=== PATIENT | female | born 1945 | race Caucasian/White ===

== ENCOUNTER 2018-04-22 10:34 | Outpatient (CLI) | payer MEDICARE, SELFPAY ==
[2018-05-31 13:46] LABS: PHA INR Fingerstick 1.8 (0.9-1.1)
== END 2018-04-22 14:30 ==
LOC: ACC 10:37
PROVIDERS: PCP Nurse Practitioner; Visit Provider Nurse Practitioner
DX: Z79.01 Long term (current) use of anticoagulants (principal)
CPT/HCPCS: 85610; 99211; G0463

== ENCOUNTER 2018-06-27 10:16 | Inpatient (IN) ==
[2018-06-27 10:37] LABS: Basophils % 0.4 % (0.1-2.0); Eosinophils % 0.5 % (0.1-12.0); Hematocrit 45.5 % (37.0-47.0); Hemoglobin 14.8 g/dL (12.2-16.2); Lymphocytes # 1.1 K/mm3 (0.7-4.5); Lymphocytes % 30.3 % (10-50); Mean Corpuscular HGB Conc 32.5 g/dL (31.8-35.4); Mean Corpuscular Hemoglobin 34.3 pg (27.0-31.2); Mean Corpuscular Volume 105.5 fl (81-99); Mean Platelet Volume 8.4 fl (7.4-10.4); Monocytes # 0.2 K/mm3 (0.1-1.0); Monocytes % 5.8 % (1.7-9.3); Neutrophils # 2.3 K/mm3 (1.8-7.8); Platelet Count 261 K/mm3 (142-424); Red Blood Count 4.31 M/mm3 (4.20-5.40); Red Cell Distribution Width 14.3 % (11.5-17.5); White Blood Count 3.7 K/mm3 (4.8-10.8)
--- NOTE | 2018-06-27 10:38 | Emergency Department Note ---
ED Disposition Clinical Impression: Chronic atrial fibrillation, Anxiety and depression, Hypertension, Rheumatoid arthritis, Osteopenia, Unstable angina, Atrial fibrillation with RVR, Vomiting, Hypokalemia Disposition: Still a Patient Condition on Discharge: Fair Referrals: Provider,Referral, [Referring] - - Critical Care Critical Care Time: No Attestation: On 06/27/18, the high probability of a clinically significant, sudden or life threatening deterioration of the following system(s) required my full and direct attention, intervention and personal management. The time I documented below is in addition to time spent performing reported procedures but includes the following listed in this critical care notation. Medical Decision Making - Medical Records Medical records reviewed: Yes: I reviewed the patient's medical records. - Vitor Inquiry Pt receiving controlled substance: No Vitor was queried for this patient: No Vital Signs: 06/27/18 10:16 06/27/18 11:00 06/27/18 11:12 Temperature 97.9 F Temperature Source Oral Pulse Rate [Apical] 111 H 103 H 113 H Respiratory Rate 20 18 Blood Pressure [Right Arm] 143/81 H 112/72 121/72 Blood Pressure Mean [Right Arm] 101 85 88 Blood Pressure Source [Right Arm] Automatic Cuff Automatic Cuff Automatic Cuff Blood Pressure Position [Right Arm] Sitting Sitting Supine 02 Sat by Pulse Oximetry 100 100 100 Oxygen Delivery Method Room Air Room Air Room Air 06/27/18 11:32 06/27/18 12:42 06/27/18 12:46 Temperature Temperature Source Pulse Rate [Apical] 103 H 107 H 125 H Respiratory Rate Blood Pressure [Right Arm] 117/64 137/83 130/74 Blood Pressure Mean [Right Arm] 81 101 92 Blood Pressure Source [Right Arm] Automatic Cuff Automatic Cuff Automatic Cuff Blood Pressure Position [Right Arm] Sitting Sitting Sitting 02 Sat by Pulse Oximetry 98 98 Oxygen Delivery Method Room Air Room Air 06/27/18 12:51 Temperature Temperature Source Pulse Rate [Apical] 111 H Respiratory Rate Blood Pressure [Right Arm] 120/75 Blood Pressure Mean [Right Arm] 90 Blood Pressure Source [Right Arm] Automatic Cuff Blood Pressure Position [Right Arm] Sitting 02 Sat by Pulse Oximetry Oxygen Delivery Method - Lab Data Lab Results 06/27/18 10:20: WBC 3.7 L, RBC 4.31, Hgb 14.8, Hct 45.5, MCV 105.5 H, MCH 34.3 H , MCHC 32.5, RDW 14.3, Plt Count 261, MPV 8.4, Neut % (Auto) 63.0, Lymph % (Auto) 30.3, [place] % (Auto) 5.8, Eos % (Auto) 0.5, Baso % (Auto) 0.4, Neut # (Auto) 2.3, Lymph # (Auto) 1.1, [place] # (Auto) 0.2, Eos # (Auto) 0.0, Baso # (Auto) 0.0 06/27/18 10:20: PT 12.5 H, INR 1.22 H 06/27/18 10:20: Sodium 138, Potassium 3.3 L, Chloride 100, Carbon Dioxide 26, Anion Gap 15.3 H, BUN 9, Creatinine 1.05 H, Estimated Creat Clear 34, Estimated GFR 51 L, Est GFR ( Amer) 62, Glucose 142 H, Calcium 9.8, Troponin I < 0.02 06/27/18 10:20: PT 12.4 H, INR 1.21 H, APTT 26.4 06/27/18 10:20: Magnesium 1.8, Total Bilirubin 0.4, Direct Bilirubin 0.1, Indirect Bilirubin 0.3, AST 13 L, ALT 13, Alkaline Phosphatase 76, Total Protein 8.3 H, Albumin 4.1 Result diagrams: 06/27/18 10:20 06/27/18 10:20 Orders (Tests/Meds): ED MEDICATIONS Generic Name Dose Route Start Last Admin Trade Name Freq PRN Reason Stop Dose Admin Sodium Chloride 1,000 mls @ 999 mls/hr 06/27/18 12:15 Sod Chlor 0.9% 1000ml Bag IV 06/27/18 13:15 .Q1H1M PHU Discontinued Medications Generic Name Dose Route Start Last Admin Trade Name Freq PRN Reason Stop Dose Admin Aspirin 324 mg 06/27/18 10:49 06/27/18 11:03 Aspirin 81mg Chewable Tablet PO 06/27/18 10:50 324 mg ONCE ONE Administration Famotidine 20 mg 06/27/18 10:50 06/27/18 11:03 Pepcid 20mg/2ml Vial IV 06/27/18 10:51 20 mg ONCE ONE Administration Sodium Chloride 1,000 mls @ 999 mls/hr 06/27/18 11:00 06/27/18 11:03 Sod Chlor 0.9% 1000ml Bag IV 06/27/18 12:00 999 mls/hr .Q1H1M PHU Administration Metoprolol Tartrate 2.5 mg 06/27/18 12:35 06/27/18 12:46 Metoprolol Tartrate 5mg/5ml Vial IV 06/27/18 12:36 2.5 mg ONCE ONE Administration Ondansetron HCl 2 mg 06/27/18 10:50 06/27/18 11:03 Zofran 4mg/2ml Vial IV 06/27/18 10:51 2 mg ONCE ONE Administration Potassium Chloride 40 meq 06/27/18 12:02 06/27/18 12:50 Klor-Con 20meq Tablet PO 06/27/18 12:03 Not Given ONCE ONE ORDERS Category Date Time Status Troponin I Stat Lab 06/27/18 12:55 Ordered - Radiology Data #1 Image(s): Chest, Abdomen Image Reviewed: Yes I reviewed the patient's radiology image, Yes I discussed the image results w/the radiologist Preliminary Findings: Normal/NAD - ECG Data Tracing #1 Atrial fibrillation 100/min baseline artifact, unifocal PVCs, incomplete right bundle branch block, T wave inversion in the anterior leads and inferior leads that is stable since March 18, 2018. ECG initial impression date: 06/27/18 ECG initial impression time: 10:15 Medical Decision Narrative: I have discussed the patient's EKG lab results with the patient, her and her daughter who is an ER nurse at [facility]. She was agreeable to be admitted and be evaluated by our side seam tender. 1220 discussed her case with Dr. Randall who agreed that the patient need to be admitted for cardiac work-up. [address] Doherty who requested anti-medics, troponin every 3, and repeat EKG upon arrival to the floor General Adult HPI - General Chief complaint: Chest Pain Stated complaint: chest pain Time Seen by Provider: 06/27/18 10:20 Mode of Arrival: Ambulatory Limitations: No Limitations Description of Symptoms (Recalled from ER Triage Doc. by RN): Pt c/o L sided chest pain that began yesterday, pt describes pain as aching in nature. Pt reports n/v/d yesterday when pain began. Pt reports continues to be nauseated today and having diarrhea. pt reports hx of afib. - History of Present Illness HPI narrative: 73 years old white female with history of anxiety and chronic atrial fibrillation is on anticoagulation, also osteoarthritis and osteopenia. 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 She is here from [facility] caring for her [id number] and his who recently . She receives her care at [facility]. She brought papers from her primary care physician Alondra Patterson that showed that she is behind on many of her health screenings. Yesterday, she developed concomitant symptom of nausea, dry heaving, light chest pressure 3/10 that is unrelated to activity, and multiple diarrheas. The patient continues to be symptomatic with intremittent palpitation and exertional dyspnea so she decided to come to the ED for evaluation. The patient has has been using Fioricet for headache and stopped using her Coumadin for the past 5 days for fear of Coumadin toxicity. Onset (ago): day(s) (started yesterday morning.) Radiation: non-radiation Severity: mild Severity scale (1-10): 3 Quality: dull Relieving factors: none Exacerbating factors: none Associated symptoms: other (nausea, dry heaving and exertional dyspnea. ) - Related Data Home Medications Medication Instructions Recorded Confirmed Butalbit/Acetamin/Caff/Codeine 50 - 325 mg PO NEEDED PRN 04/24/18 06/27/18 [Fioricet w/Codeine Capsule] Metoprolol Succinate [Metoprolol 200 mg PO DAILY 04/24/18 06/27/18 Succinate 200mg Tablet] Warfarin Sodium 5 mg PO DIRECTED 04/24/18 06/27/18 Warfarin Sodium [Coumadin 1mg 2.5 mg PO DIRECTED 04/24/18 06/27/18 tablet] Ergocalciferol (Vitamin D2) 1 cap PO WEEKLY 06/27/18 06/27/18 [Vitamin D2] Allergies Allergy/AdvReac Type Severity Reaction Status Date / Time prednisone AdvReac Verified 03/17/18 13:28 [facility] History - Hepatitis A Screen Drug use history?: No High risk sexual behaviors?: No History of sexually transmitted infection?: No Currently employed?: No Childcare worker?: No Do you have indoor plumbing?: Yes Do you have electricity?: Yes Attestation statement:: This patient has been screened for Hepatitis A risk factors. I have reviewed the patient's past medical history: Yes Medical History: Reports:: Atrial Fibrillation, Migraine Denies:: Diabetes Mellitus Type 1, Diabetes Mellitus Type 2 - Social History Smoking Status: Never smoker Alcohol Intake: never Occupational Status: retired - Psychiatric History Expresses thoughts of harming self/others: None Suicide Plan Description: No Plan ROS Obtained: Yes All systems reviewed & no additional complaints Physical Exam - General General appearance: alert, in no apparent distress - Head Head exam: atraumatic, normocephalic, normal inspection - Eye Eye exam: Present: normal appearance, PERRL, EOMI - ENT ENT exam: Present: normal exam, normal oropharynx, mucous membranes moist, TM's normal bilaterally, normal external ear exam - Neck Neck exam: Present: normal inspection, full ROM, trachea midline. Absent: meningismus, lymphadenopathy - Chest Chest inspection: Present: normal inspection, symmetric chest wall rise. Absent: tenderness - Respiratory Respiratory exam: Present: normal lung sounds bilaterally. Absent: respiratory distress - Cardiovascular Cardiovascular exam: Present: regular rate, normal rhythm. Absent: JVD - Abdominal Exam Abdominal exam: Present: soft, normal bowel sounds. Absent: distention, tenderness, guarding - Extremities Exam Extremities exam: Present: normal inspection, full ROM, normal capillary refill. Absent: calf tenderness - Back Exam Back exam: Present: normal inspection. Absent: tenderness - Neurological Exam Neurological exam: Present: alert, oriented X3 - Psychiatric Psychiatric exam: Present: normal affect, normal mood - Skin Skin exam: Present: warm, dry, intact, normal color - Lymphatic Lymphatic Findings: no adenopathy
[2018-06-27 10:45] LABS: INR 1.22 (0.9-1.1); Prothrombin Time 12.5 seconds (9.4-11.8)
[2018-06-27 10:52] LABS: Anion Gap 15.3 mEq/L (5-15); Blood Urea Nitrogen 9 mg/dL (7-18); Calcium 9.8 mg/dL (8.5-10.1); Carbon Dioxide 26 mmol/L (21.0-32.0); Chloride 100 mmol/L (98-107); Glucose 142 mg/dL (74-106); Potassium 3.3 mmoL/L (3.5-5.1); Sodium 138 mmol/L (136-145)
[2018-06-27 10:53] LABS: Albumin Level 4.1 gm/dL (3.4-5.0); Bilirubin,Direct 0.1 mg/dL (0.0-0.2); Bilirubin,Indirect 0.3 mg/dL (0.0-0.9); Bilirubin,Total 0.4 mg/dL (0.2-1.0); Total Protein,Serum 8.3 gm/dL (6.4-8.2)
[2018-06-27 10:58] LABS: Activated Partial Thrombo Time 26.4 seconds (23.6-34.0); INR 1.21 (0.9-1.1); Prothrombin Time 12.4 seconds (9.4-11.8)
[2018-06-28 01:19] LABS: Microscopic, Urine URINE MICROSCOPIC (MICROSCOPIC)
[2018-06-28 01:23] LABS: Appearance,Urine SL CLOUDY (Clear); Blood, Urine 2+ (Negative); Color,Urine YELLOW (Yellow); Glucose,Urine (UA) Negative (Negative); Ketones,Urine 1+ (Negative); Leukocyte Esterase,Urine Negative (Negative); Protein,Urine 1+ (Negative); Specific Gravity, Urine 1.025 (1.005-1.030); Urobilinogen,Urine 0.2 EU/dl (0.2)
[2018-06-28 01:25] LABS: Bacteria,Urine 4+ /lpf; Bilirubin,Urine Negative (Negative)
[2018-06-28 07:30] LABS: Basophils % 0.3 % (0.1-2.0); Eosinophils % 0.1 % (0.1-12.0); Hematocrit 38.5 % (37.0-47.0); Lymphocytes % 14.2 % (10-50); Mean Corpuscular HGB Conc 32.6 g/dL (31.8-35.4); Mean Corpuscular Hemoglobin 34.4 pg (27.0-31.2); Mean Corpuscular Volume 105.5 fl (81-99); Mean Platelet Volume 8.3 fl (7.4-10.4); Monocytes # 0.4 K/mm3 (0.1-1.0); Monocytes % 5.2 % (1.7-9.3); Neutrophils # 5.6 K/mm3 (1.8-7.8); Neutrophils % 80.3 % (37.0-80.0); Platelet Count 196 K/mm3 (142-424); Red Blood Count 3.65 M/mm3 (4.20-5.40); Red Cell Distribution Width 14.8 % (11.5-17.5)
[2018-06-28 07:35] LABS: INR 1.37 (0.9-1.1)
[2018-06-28 07:41] LABS: Hemoglobin 12.7 g/dL (12.2-16.2)
[2018-06-28 07:42] LABS: Anion Gap 14.4 mEq/L (5-15)
--- NOTE | 2018-06-28 07:42 | Pharmacy Consult Notes ---
[facility] Pharmacy VTE Monitoring - Patient Demographics Admission date: 06/27/18 Report Date: 06/28/18 Time: 07:42 Allergies/Adverse Reactions: Patient Allergies prednisone Adverse Reaction (Verified 03/17/18 13:28) Height: 1.6 m Weight: 44.906 kg Patient Problems: Current Active Problems (Updated 06/27/18 @ 13:03 by Gisele Tom MD) Chronic atrial fibrillation (Acute) Hypokalemia (Acute) Rheumatoid arthritis (Acute) Anxiety and depression (Acute) Hypertension (Acute) Osteopenia (Acute) Unstable angina (Acute) Atrial fibrillation with RVR (Acute) Vomiting (Acute) - VTE Risk Labs: VTE Related Lab Results Hgb 12.7 g/dL (12.2-16.2) D 06/28/18 06:50 Hct 38.5 % (37.0-47.0) 06/28/18 06:50 Plt Count 196 K/mm3 (142-424) 06/28/18 06:50 PT 14.0 seconds (9.4-11.8) H 06/28/18 06:50 INR 1.37 (0.9-1.1) H 06/28/18 06:50 APTT 26.4 seconds (23.6-34.0) 06/27/18 10:20 BUN 9 mg/dL (7-18) 06/27/18 10:20 Creatinine 1.05 mg/dL (0.55-1.02) H 06/27/18 10:20 Estimated Creat Clear 34 mL/min (50-200) 06/27/18 10:20 Was VTE Risk Assessment Performed: Yes VTE Score: 2 - Prophylaxis VTE Prophylaxis Ordered?: Yes Types of VTE Prophylaxis: Pharmacological Pharmacologic Type: Warfarin - VTE Diagnosis Confirmed Treatment or plan recommended: Continue Current Treatment
[2018-06-28 07:47] LABS: Potassium 2.4 mmoL/L (3.5-5.1)
[2018-06-28 07:52] LABS: Calcium 8.6 mg/dL (8.5-10.1)
--- NOTE | 2018-06-28 07:56 | History & Physical Report ---
*Admission Date: 06/27/18 *Chief complaint: Chest pain and abdominal pain *History of present illness: 73-year-old white female with history of atrial fibrillation and cardiac disease, who has been staying in the [facility] for the past several months taking care of some relatives, who normally follows with cardiology and a regular physician in [place], [place]. She came to the emergency department last night because of chest pain and pressure, related to increased heart rate. In the emergency department she was found to have subtherapeutic INR, found to have elevated heart rate but negative troponins. Given her overall medical fragility and need for better medication control of heart rate and INR issues she was admitted overnight to the hospital. This morning she continues to feel tired and sluggish. She specifically denies chest pain this morning [facility] History I have reviewed the patient's past medical history: Yes Medical History: Reports:: Atrial Fibrillation, Migraine Denies:: Cancer, Diabetes Mellitus Type 1, Diabetes Mellitus Type 2, MRSA *Have you ever received a pneumonia vaccine?: No *Have you received a flu vaccine this season?: No Other Surgeries: Yes: Cardiac Catheterization (28 years ago) Amputation: No Fractures: No - *Social History Educational Level: Completed GED/General Educational Development Smoking Status: Never smoker Alcohol Intake: never *Occupational Status:: retired *Travel in the last 8 weeks: None - Psychiatric History Expresses thoughts of harming self/others: None Suicide Plan Description: No Plan Family Hx:: No significant family history Review of Systems - Review of Systems Review of systems:: pertinent systems reviewed and negative unless documented below - Constitutional Denies anorexia, Denies body ache(s) - Eyes Denies blurry vision, Denies change in vision - ENT Denies abnormal hearing, Denies bleeding gums, Denies change in voice - *Cardiovascular Reports chest pain, Reports shortness of breath, Reports shortness of breath with activity, Reports irregular heart rhythm, Denies chest pain at rest - *Respiratory Denies change in phlegm color, Denies chest congestion, Denies cough - *Gastrointestinal Denies abdominal pain, Denies belching - *Musculoskeletal Denies abnormal walking, Denies joint pain, Denies joint swelling - *Neurologic Denies abnormal walking - Psychiatric Denies abnormal sleep pattern Meds Home Medications Medication Instructions Recorded Confirmed Type Butalbit/Acetamin/Caff/Codeine 50 - 325 mg PO NEEDED PRN 04/24/18 06/27/18 Hi story [Fioricet w/Codeine Capsule] Metoprolol Succinate [Metoprolol 200 mg PO DAILY 04/24/18 06/27/18 History Succinate 200mg Tablet] Warfarin Sodium 5 mg PO DAILY 04/24/18 06/27/18 History Ergocalciferol (Vitamin D2) 1 cap PO WEEKLY 06/27/18 06/27/18 History [Vitamin D2] Ondansetron HCl [Ondansetron 4mg 4 mg PO Q8HP PRN 06/27/18 06/27/18 History Tablet] Allergies Allergy/AdvReac Type Severity Reaction Status Date / Time prednisone AdvReac Verified 03/17/18 13:28 Exam Vital signs and Labs for Last 24 Hours: Temp Pulse Resp BP Pulse Ox 98.4 F 131 H 18 138/78 98 06/28/18 07:33 06/28/18 07:33 06/28/18 07:33 06/28/18 07:33 06/28/18 07:33 Laboratory Results - last 24 hr 06/27/18 10:20: WBC 3.7 L, RBC 4.31, Hgb 14.8, Hct 45.5, MCV 105.5 H, MCH 34.3 H , MCHC 32.5, RDW 14.3, Plt Count 261, MPV 8.4, Neut % (Auto) 63.0, Lymph % (Auto) 30.3, [place] % (Auto) 5.8, Eos % (Auto) 0.5, Baso % (Auto) 0.4, Neut # (Auto) 2.3, Lymph # (Auto) 1.1, [place] # (Auto) 0.2, Eos # (Auto) 0.0, Baso # (Aut o) 0.0 06/27/18 10:20: PT 12.5 H, INR 1.22 H 06/27/18 10:20: Sodium 138, Potassium 3.3 L, Chloride 100, Carbon Dioxide 26, Anion Gap 15.3 H, BUN 9, Creatinine 1.05 H, Estimated Creat Clear 34, Estimated GFR 51 L, Est GFR ( Amer) 62, Glucose 142 H, Calcium 9.8, Troponin I < 0.02 06/27/18 10:20: PT 12.4 H, INR 1.21 H, APTT 26.4 06/27/18 10:20: Magnesium 1.8, Total Bilirubin 0.4, Direct Bilirubin 0.1, Indirect Bilirubin 0.3, AST 13 L, ALT 13, Alkaline Phosphatase 76, Total Protein 8.3 H, Albumin 4.1 06/27/18 17:05: Troponin I < 0.02 06/27/18 19:27: Troponin I < 0.02 06/28/18 00:40: Stl Aeromonas (PCR) Not detected, Stl C. cayetanensis PCR Not detected, Stool Rotavirus (PCR) Not detected, Stl Adenov F 40/41 PCR Not detected, Stool Astrovirus (PCR) Not detected, Stool Campylobacter PCR Not detected, Stl C.difficile Tox PCR Not detected, Stool Cryptosporidium PCR Not detected, Stl E.coli Shiga Tox PCR Not detected, Stool E coli O157 PCR Not detected, Stl Enterotoxigenic E PCR Not detected, Stool EPEC (PCR) Not detected, Stool EAEC (PCR) Not detected, Stl E. histolytica PCR Not detected, Stool Giardia Lamblia PCR Not detected, Stool Salmonella PCR Not detected, Stool Sapovirus (PCR) Not detected, Stl P. shigelloides PCR Not detected, Stl Shigella/EIEC PCR Not detected, St Y.enterocolitica PCR Not detected, Stool Vibrio (PCR) Not detected, Stl Vibrio cholerae PCR Not detected, Stl Norovirus GI/GII PCR Not detected 06/28/18 00:40: Urine Color Yellow, Urine Appearance Sl cloudy, Urine pH 6.0, Ur Specific [place] 1.025, Urine Protein 1+, Urine Glucose (UA) Negative, Urine Ketones 1+, Urine Blood 2+, Urine Nitrate Negative, Urine Bilirubin Negative, Urine Urobilinogen 0.2, Ur Leukocyte Esterase Negative, Urine RBC 5-10, Urine WBC 5-10, Urine Bacteria 4+ 06/28/18 06:50: PT 14.0 H, INR 1.37 H 06/28/18 06:50: WBC 7.0 D, RBC 3.65 L, Hgb 12.7 D, Hct 38.5, MCV 105.5 H, MCH 34.4 H, MCHC 32.6, RDW 14.8, Plt Count 196, MPV 8.3, Neut % (Auto) 80.3 H, Lymph % (Auto) 14.2, [place] % (Auto) 5.2, Eos % (Auto) 0.1, Baso % (Auto) 0.3, Neut # (Auto) 5.6, Lymph # (Auto) 1.0, [place] # (Auto) 0.4, Eos # (Auto) 0.0, Baso # (Auto) 0.0 06/28/18 06:50: Sodium 139, Potassium 2.4 L* D, Chloride 103, Carbon Dioxide 24, Anion Gap 14.4, BUN 5 L D, Creatinine 0.78 D, Estimated Creat Clear 35, Estimated GFR 72, Est GFR ( Amer) 87 D, Glucose 114 H I & O for Last 24 hours: Intake & Output 06/25/18 06/26/18 06/27/18 06/28/18 11:59 11:59 11:59 11:59 Intake Total 1611 / 1611 Output Total 200 / 200 Balance 1411 / 1411 Weight 100 lb 8 oz 99 lb Narrative: Patient is pleasant, appears older than her stated age and is extremely frail and thin. Oropharynx clear. No JVD. Heart rate is elevated at 110-120 and irregular. Distal pulses are regular but present. No edema or clubbing. Good distal perfusion. Lungs have good air movement and are well-expanded. Abdomen is soft and nontender. No specific neuro deficits. Normal cranial nerves. Assessment and Plan (1) Chest pain Current visit: Yes Status: Acute Category: Medical Code(s): R07.9 - Chest pain, unspecified Cardiology eval today.. check echo. (2) Atrial fibrillation with RVR Current visit: Yes Status: Acute Category: Medical Code(s): I48.91 - Unspecified atrial fibrillation restart metoprolol.... eval INR levels (3) Chronic atrial fibrillation Current visit: Yes Status: Acute Category: Medical Code(s): I48.2 - Chronic atrial fibrillation (4) Hypertension Current visit: Yes Status: Acute Category: Medical Code(s): I10 - Essential (primary) hypertension (5) Hypokalemia Current visit: Yes Status: Acute Category: Medical Code(s): E87.6 - Hypokalemia Replace K+ as noted. (6) BMI less than 19,adult Current visit: Yes Status: Acute Category: Medical Code(s): Z68.1 - Body mass index (BMI) 19.9 or less, adult Complicates all aspects of her care.
--- NOTE | 2018-06-28 10:06 | Consult Report ---
History of Present Illness Consult date: 06/28/18 Requesting physician: Yeyo Cotto Consult reason: atrial fibrillation Chief complaint: chest pain, A. fib Additional Medical History:: 1. Chronic A. fib A. Coumadin therpay, chronic 2. 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 History of esophageal stricture status post dilatation x2 History of present illness: 73-year-old white female with history of atrial fibrillation and cardiac disease, who has been staying in the [facility] for the past several months taking care of some relatives, who normally follows with cardiology and a regul ar physician in [place], [place]. She came to the emergency department last night because of chest pain and pressure, related to increased heart rate. In the emergency department she was found to have subtherapeutic INR, found to have elevated heart rate but negative troponins. Given her overall medical fragility and need for better medication control of heart rate and INR issues she was admitted overnight to the hospital. This morning she continues to feel tired and sluggish. She specifically denies chest pain this morning The above per Dr. Cotto Patient relates some upper abdominal lower chest discomfort which she relates to indigestion for which she was taking multiple doses of Pepto-Bismol yesterday. When she became constipated due to the Pepto-Bismol she did decided to take a shake to try and alleviate symptoms. This later produced some significant diarrhea which prompted her to come to the emergency department for evaluation. Patient was noted to have tachycardic rate with a subtherapeutic INR and was kept for further evaluation. Cardiac troponins overnight have returned normal. Patient relates cardiac stress test in the fall of last year in [place], [place] which was unremarkable. Her Medications were adjusted to try to control her heart rate a little bit better, but she relates recently at about 2 in the morning she has noticed that her heart rate begins to flutter without associated chest pain. She denies any change in her exercise capacity recently. Her Arthritis is somewhat limiting. She sees Dr. Jose Guadalupe Dowell, fitter armament in [place], [place]. EKG this admission shows atrial fibrillation with a tachycardic rate with anterolateral ST segment abnormalities with no previous EKG for comparison. [facility] History Medical History: Reports:: Atrial Fibrillation, Migraine Denies:: Cancer, Diabetes Mellitus Type 1, Diabetes Mellitus Type 2, MRSA *Have you ever received a pneumonia vaccine?: No *Have you received a flu vaccine this season?: No Other Surgeries: Yes: Cardiac Catheterization (28 years ago) Amputation: No Fractures: No - *Social History Educational Level: Completed GED/General Educational Development Smoking Status: Never smoker Alcohol Intake: never *Occupational Status:: retired *Travel in the last 8 weeks: None - Psychiatric History Expresses thoughts of harming self/others: None Suicide Plan Description: No Plan Family Hx:: No significant family history Meds Home Medications Medication Instructions Recorded Confirmed Type Butalbit/Acetamin/Caff/Codeine 1 each PO DIRECTED PRN 04/24/18 06/28/18 History [Fioricet w/Codeine Capsule] Metoprolol Succinate [Metoprolol 200 mg PO DAILY 04/24/18 06/27/18 History Succinate 200mg Tablet] Warfarin Sodium 5 mg PO DIRECTED 04/24/18 06/28/18 History Ergocalciferol (Vitamin D2) 1 cap PO WEEKLY 06/27/18 06/27/18 History [Vitamin D2] Ondansetron HCl [Ondansetron 4mg 4 mg PO Q8HP PRN 06/27/18 06/27/18 History Tablet] Allergies Allergy/AdvReac Type Severity Reaction Status Date / Time prednisone AdvReac Verified 03/17/18 13:28 Review of Systems - *Cardiovascular Reports chest pain, Reports rapid, pounding, or irregular heartbeat - *Respiratory Reports shortness of breath with activity, Denies coughing up blood, Denies wheezing - *Gastrointestinal Reports heartburn, Denies vomiting blood, Denies vomiting - *Genitourinary Denies side pain - *Musculoskeletal Reports joint pain, Reports back pain - *Neurologic Denies abnormal walking, Denies abnormal hearing Exam Vital signs and Labs for Last 24 Hours: Temp Pulse Resp BP Pulse Ox 98.4 F 131 H 18 138/78 98 06/28/18 07:33 06/28/18 07:33 06/28/18 07:33 06/28/18 07:33 06/28/18 07:33 Laboratory Results - last 24 hr 06/27/18 10:20: WBC 3.7 L, RBC 4.31, Hgb 14.8, Hct 45.5, MCV 105.5 H, MCH 34.3 H , MCHC 32.5, RDW 14.3, Plt Count 261, MPV 8.4, Neut % (Auto) 63.0, Lymph % (Auto) 30.3, [place] % (Auto) 5.8, Eos % (Auto) 0.5, Baso % (Auto) 0.4, Neut # (Auto) 2.3, Lymph # (Auto) 1.1, [place] # (Auto) 0.2, Eos # (Auto) 0.0, Baso # (Auto) 0.0 06/27/18 10:20: PT 12.5 H, INR 1.22 H 06/27/18 10:20: Sodium 138, Potassium 3.3 L, Chloride 100, Carbon Dioxide 26, Anion Gap 15.3 H, BUN 9, Creatinine 1.05 H, Estimated Creat Clear 34, Estimated GFR 51 L, Est GFR ( Amer) 62, Glucose 142 H, Calcium 9.8, Troponin I < 0.02 06/27/18 10:20: PT 12.4 H, INR 1.21 H, APTT 26.4 06/27/18 10:20: Magnesium 1.8, Total Bilirubin 0.4, Direct Bilirubin 0.1, Indirect Bilirubin 0.3, AST 13 L, ALT 13, Alkaline Phosphatase 76, Total Protein 8.3 H, Albumin 4.1 06/27/18 17:05: Troponin I < 0.02 06/27/18 19:27: Troponin I < 0.02 06/28/18 00:40: Stl Aeromonas (PCR) Not detected, Stl C. cayetanensis PCR Not detected, Stool Rotavirus (PCR) Not detected, Stl Adenov F 40/41 PCR Not detected, Stool Astrovirus (PCR) Not detected, Stool Campylobacter PCR Not detected, Stl C.difficile Tox PCR Not detected, Stool Cryptosporidium PCR Not detected, Stl E.coli Shiga Tox PCR Not detected, Stool E coli O157 PCR Not detected, Stl Enterotoxigenic E PCR Not detected, Stool EPEC (PCR) Not detected, Stool EAEC (PCR) Not detected, Stl E. histolytica PCR Not detected, Stool Giardia Lamblia PCR Not detected, Stool Salmonella PCR Not detected, Stool Sapovirus (PCR) Not detected, Stl P. shigelloides PCR Not detected, Stl Shigella/EIEC PCR Not detected, St Y.enterocolitica PCR Not detected, Stool Vibrio (PCR) Not detected, Stl Vibrio cholerae PCR Not detected, Stl Norovirus GI/GII PCR Not detected 06/28/18 00:40: Urine Color Yellow, Urine Appearance Sl cloudy, Urine pH 6.0, Ur Specific [place] 1.025, Urine Protein 1+, Urine Glucose (UA) Negative, Urine Ketones 1+, Urine Blood 2+, Urine Nitrate Negative, Urine Bilirubin Negative, Urine Urobilinogen 0.2, Ur Leukocyte Esterase Negative, Urine RBC 5-10, Urine WBC 5-10, Urine Bacteria 4+ 06/28/18 06:50: PT 14.0 H, INR 1.37 H 06/28/18 06:50: WBC 7.0 D, RBC 3.65 L, Hgb 12.7 D, Hct 38.5, MCV 105.5 H, MCH 34.4 H, MCHC 32.6, RDW 14.8, Plt Count 196, MPV 8.3, Neut % (Auto) 80.3 H, Lymph % (Auto) 14.2, [place] % (Auto) 5.2, Eos % (Auto) 0.1, Baso % (Auto) 0.3, Neut # (Auto) 5.6, Lymph # (Auto) 1.0, [place] # (Auto) 0.4, Eos # (Auto) 0.0, Baso # (Auto) 0.0 06/28/18 06:50: Sodium 139, Potassium 2.4 L* D, Chloride 103, Carbon Dioxide 24, Anion Gap 14.4, BUN 5 L D, Creatinine 0.78 D, Estimated Creat Clear 35, Estimated GFR 72, Est GFR ( Amer) 87 D, Glucose 114 H, Calcium 8.6 D I & O for Last 24 hours: Intake & Output 06/25/18 06/26/18 06/27/18 06/28/18 11:59 11:59 11:59 11:59 Intake Total 1611 / 1611 Output Total 400 / 400 Balance 1211 / 1211 Weight 100 lb 8 oz 99 lb - *Routine HEENT Exam Head: Present: normocephalic Eye: Present: EOMI, PERRL ENT: Present: mucous membranes moist - *Routine Neck Exam Present: supple. Absent: JVD, carotid bruit - *Routine Respiratory Exam Present: CTA bilaterally. Absent: accessory muscle use, rales, rhonchi, wheezes - *Routine Cardiovascular Exam Present: irregular rhythm. Absent: murmur, gallop, rubs - *Routine Abdominal Exam Present: soft. Absent: tenderness, distended, guarding - *Routine Extremities Exam Absent: edema, calf tenderness - *Routine Neurological Exam Present: alert, oriented X3, moving all extremities Assessment and Plan (1) Chest pain Current visit: Yes Status: Acute Category: Medical Code(s): R07.9 - Chest pain, unspecified (2) Atrial fibrillation with RVR Current visit: Yes Status: Acute Category: Medical Code(s): I48.91 - Unspecified atrial fibrillation (3) Chronic atrial fibrillation Current visit: Yes Status: Acute Category: Medical Code(s): I48.2 - Chronic atrial fibrillation (4) Hypertension Current visit: Yes Status: Acute Category: Medical Code(s): I10 - Essential (primary) hypertension (5) Hypokalemia Current visit: Yes Status: Acute Category: Medical Code(s): E87.6 - Hypokalemia (6) BMI less than 19,adult Current visit: Yes Status: Acute Category: Medical Code(s): Z68.1 - Body mass index (BMI) 19.9 or less, adult - Assessment and plan all Dx Assessment and Plan for all problems:: 1. Atypical chest pain with patient relating recent stress testing in the fall 2017 that was unremarkable and without need for further evaluation. Cardiac troponins normal x3 with no acute ST segment elevation. Recommend obtaining an echocardiogram once the patient's heart rate is better controlled. 2. Patient's metoprolol has been adjusted to metoprolol tartrate 100 mg twice daily with addition of Cardizem 30 mg 3 times daily for rate control. If this is not adequate then consider adding digoxin. 3. Continue Coumadin therapy. I did discuss possible transition to Eliquis with the patient but she is happy with Coumadin and has not had any significant issues with being on it.
--- NOTE | 2018-06-28 19:02 | Cardiology Report ---
PROCEDURE: 2-D M-mode and color Doppler study INDICATIONS FOR THE TEST: Chest pain + COPD Heart Murmur Tobacco Smoking Palpitations Fatigue Syncope Edema Hypertension+Diabetes Mellitus Rheumatic Fever SOB SHELDON Obesity Hyperlipidemia Family History HD Additional History CHRONIC A FIB PATIENT INFORMATION HEIGHT: 63 WEIGHT:99 GENDER: Female B/P:138/78 2-D/M-MODE INTERPRETATION: 2-D MEASUREMENTS OBSERVED VALUES IN CMS Right Ventricular Dimension (RVDd) 4.3 Interventricular Septum (Thickness)(IVsd) 1.1 Left Ventricular Internal Dimensions(LVIDd) 4.1 Left Ventricular Posterior Wall (Thickness)(LVPWd) 0.9 Aortic Root 3.5 Aortic Cusp Separation 2.0 Left Atrial Dimensions (LAD) 6.0 2D 1. Left atrium is markedly enlarged, left ventricle is normal size, there is no concentric left ventricular hypertrophy, visually estimated ejection fraction of 55% with no regional wall motion abnormality. 2. The right atrium is markedly enlarged, right ventricle is moderately dilated with normal contractility. 3. The aortic valve is minimally thickened and fibrosed. 4. The mitral and tricuspid valve leaflets are minimally thickened. 5. The pulmonic valve is poorly visualized. 6. No significant pericardial effusion noted. DOPPLER INTERROGATION: Doppler interrogation of the aortic, mitral and tricuspid valvular presence of moderate mitral and severe tricuspid regurgitation, calculated right ventricular systolic pressure is 47 mmHg consistent with moderate pulmonary hypertension, diastolic parameters are inconclusive, inferior vena cava is not well visualized. CONCLUSION: 1. Mild biatrial enlargement, normal left ventricular size, visually estimated ejection fraction of 55% with no regional wall motion abnormality. Diastolic parameters are inconclusive. 2. Moderately enlarged right ventricle with normal contractility. 3. Moderate mitral and severe tricuspid regurgitation, calculated right ventricular systolic pressure is 47 mmHg consistent with moderate pulmonary hypertension, inferior vena cava is not well visualized. 4. No significant pericardial effusion noted.
[2018-06-29 07:37] LABS: Basophils % 0.2 % (0.1-2.0); Eosinophils % 0.1 % (0.1-12.0); Hemoglobin 12.4 g/dL (12.2-16.2); Lymphocytes # 1.2 K/mm3 (0.7-4.5); Lymphocytes % 25.1 % (10-50); Mean Corpuscular HGB Conc 32.5 g/dL (31.8-35.4); Mean Corpuscular Hemoglobin 34.3 pg (27.0-31.2); Mean Corpuscular Volume 105.7 fl (81-99); Mean Platelet Volume 8.3 fl (7.4-10.4); Monocytes # 0.3 K/mm3 (0.1-1.0); Monocytes % 6.5 % (1.7-9.3); Neutrophils # 3.4 K/mm3 (1.8-7.8); Platelet Count 162 K/mm3 (142-424); Red Cell Distribution Width 14.8 % (11.5-17.5)
[2018-06-29 07:44] LABS: Anion Gap 16.4 mEq/L (5-15); Potassium 3.4 mmoL/L (3.5-5.1)
--- NOTE | 2018-06-29 08:42 | Progress Note ---
Internal Medicine - PN: Subj *Date: 06/29/18 *Time: 14:24 Interval history: Ms. Heredia slept poorly overnight from her back pain due to her scoliosis. Otherwise tolerating p.o. intake. Heart rate continues to be above goal of less than 90 even with the addition of diltiazem. Cardiology saw patient today, appreciate their recommendations and continuing to follow along. Remains afebrile. Denies nausea, shortness of breath, chest pain. Urine culture came back today positive for gram-negative rods. Exam Vital signs and Labs for Last 24 Hours: Temp Pulse Resp BP Pulse Ox 98.3 F 92 H 20 140/64 93 L 06/29/18 04:00 06/29/18 04:00 06/29/18 04:00 06/29/18 04:00 06/29/18 07:59 Laboratory Results - last 24 hr 06/28/18 00:40: Urine Color Yellow, Urine Appearance Sl cloudy, Urine pH 6.0, Ur Specific [place] 1.025, Urine Protein 1+, Urine Glucose (UA) Negative, Urine Ketones 1+, Urine Blood 2+, Urine Nitrate Negative, Urine Bilirubin Negative, Urine Urobilinogen 0.2, Ur Leukocyte Esterase Negative, Urine RBC 5-10, Urine WBC 5-10, Urine Bacteria 4+ 06/29/18 07:30: WBC 5.0 D, RBC 3.60 L, Hgb 12.4, Hct 38.0, MCV 105.7 H, MCH 34.3 H, MCHC 32.5, RDW 14.8, Plt Count 162, MPV 8.3, Neut % (Auto) 68.0, Lymph % (Auto) 25.1, [place] % (Auto) 6.5, Eos % (Auto) 0.1, Baso % (Auto) 0.2, Neut # (Auto) 3.4, Lymph # (Auto) 1.2, [place] # (Auto) 0.3, Eos # (Auto) 0.0, Baso # (Auto) 0.0 06/29/18 07:30: Sodium 138, Potassium 3.4 L D, Chloride 101, Carbon Dioxide 24, Anion Gap 16.4 H, BUN 5 L, Creatinine 0.76, Estimated Creat Clear 35, Estimated GFR 74, Est GFR ( Amer) 90, Glucose 87, Calcium 9.0 I & O for Last 24 hours: Intake & Output 06/26/18 06/27/18 06/28/18 06/29/18 23:59 23:59 23:59 23:59 Intake Total 1510 / 1510 461 / 461 2462 / 2462 Output Total 600 / 600 300 / 300 Balance 1510 / 1510 -139 / -139 2162 / 2162 Weight 44.452 kg 44.906 kg Microbiology Reports for the Last 24 Hours: Microbiology 06/28/18 00:40 Urine,Clean Catch Urine Culture - Preliminary Gram Negative Rods Narrative: Patient is pleasant, appears older than her stated age and is extremely frail and thin. Oropharynx clear. No JVD. Heart rate irregularly irregular and tachycardic at 110-120. Distal pulses are regular but present. No edema or clubbing, ulnar deviation of hands due to arthritis. Good distal perfusion. Lungs have good air movement and are well-expanded. Abdomen is soft and nontender. No specific neuro deficits. Normal cranial nerves. Visible scoliosis in her spine Assessment and Plan (1) Chest pain Current visit: Yes Status: Acute Category: Medical Code(s): R07.9 - Chest pain, unspecified (2) Atrial fibrillation with RVR Current visit: Yes Status: Acute Category: Medical Code(s): I48.91 - Unspecified atrial fibrillation (3) Chronic atrial fibrillation Current visit: Yes Status: Acute Category: Medical Code(s): I48.2 - Chronic atrial fibrillation Continue to titrate rate control medications. Continue metoprolol 100 twice daily. Increase diltiazem to 90 mg 3 times a day. Added digoxin today. Will assess for rate control improvement over the course of the day. If tolerates well with improved control, will transition to long-acting diltiazem for discharge home (4) Hypertension Current visit: Yes Status: Acute Category: Medical Code(s): I10 - Essential (primary) hypertension (5) Hypokalemia Current visit: Yes Status: Resolved Category: Medical Code(s): E87.6 - Hypokalemia Resolved (6) BMI less than 19,adult Current visit: Yes Status: Acute Category: Medical Code(s): Z68.1 - Body mass index (BMI) 19.9 or less, adult (7) Macrocytosis without anemia Current visit: Yes Status: Acute Category: Medical Code(s): D75.89 - Other specified diseases of blood and blood-forming organs Suspect B12 deficiency, will discuss placement in the outpatient setting (8) UTI (urinary tract infection) Current visit: Yes Status: Acute Qualifiers: Urinary tract infection type: acute cystitis Category: Medical Code(s): N39.0 - Urinary tract infection, site not specified Due to gram-negative sheree, speciation and sensitivity pending. Continue ceftriaxone at this time - Assessment and plan all Dx Assessment and Plan for all problems:: He needs to require inpatient management for her uncontrolled A. fib with RVR
--- NOTE | 2018-06-29 09:13 | Progress Note ---
Subjective Date: 06/29/18 Time: 09:10 Principal diagnosis: A. fib Interval history: 73-year-old white female in bed sitting up at bedside in no acute distress. Patient relates a significant discomfort from her arthritis in her back. Patient is not sleeping well here in the hospital. Telemetry shows continued A. fib with intermittent tachycardia up to 170 bpm. Exam Vital signs and Labs for Last 24 Hours: Temp Pulse Resp BP Pulse Ox 98.9 F 130 H 18 115/70 95 06/29/18 08:00 06/29/18 08:59 06/29/18 08:00 06/29/18 08:00 06/29/18 08:00 Laboratory Results - last 24 hr 06/28/18 00:40: Urine Color Yellow, Urine Appearance Sl cloudy, Urine pH 6.0, Ur Specific [place] 1.025, Urine Protein 1+, Urine Glucose (UA) Negative, Urine Ketones 1+, Urine Blood 2+, Urine Nitrate Negative, Urine Bilirubin Negative, Urine Urobilinogen 0.2, Ur Leukocyte Esterase Negative, Urine RBC 5-10, Urine WBC 5-10, Urine Bacteria 4+ 06/29/18 07:30: WBC 5.0 D, RBC 3.60 L, Hgb 12.4, Hct 38.0, MCV 105.7 H, MCH 34.3 H, MCHC 32.5, RDW 14.8, Plt Count 162, MPV 8.3, Neut % (Auto) 68.0, Lymph % (Auto) 25.1, [place] % (Auto) 6.5, Eos % (Auto) 0.1, Baso % (Auto) 0.2, Neut # (Auto) 3.4, Lymph # (Auto) 1.2, [place] # (Auto) 0.3, Eos # (Auto) 0.0, Baso # (Auto) 0.0 06/29/18 07:30: Sodium 138, Potassium 3.4 L D, Chloride 101, Carbon Dioxide 24, Anion Gap 16.4 H, BUN 5 L, Creatinine 0.76, Estimated Creat Clear 35, Estimated GFR 74, Est GFR ( Amer) 90, Glucose 87, Calcium 9.0 I & O for Last 24 hours: Intake & Output 06/26/18 06/27/18 06/28/18 06/29/18 11:59 11:59 11:59 11:59 Intake Total 1611 / 1611 3302 / 3302 Output Total 400 / 400 500 / 500 Balance 1211 / 1211 2802 / 2802 Weight 100 lb 8 oz 99 lb 99 lb 0.012 oz Microbiology Reports for the Last 24 Hours: Microbiology 06/28/18 00:40 Urine,Clean Catch Urine Culture - Preliminary Gram Negative Rods - *Routine HEENT Exam Head: Present: normocephalic Eye: Present: EOMI, PERRL ENT: Present: mucous membranes moist - *Routine Respiratory Exam Present: CTA bilaterally. Absent: accessory muscle use, rales, rhonchi, wheezes - *Routine Cardiovascular Exam Present: RRR, tachycardia, irregularly irregular. Absent: murmur, gallop, rubs - *Routine Extremities Exam Absent: edema, calf tenderness - *Routine Neurological Exam Present: alert, oriented X3, moving all extremities Progress Note: A&P (1) Chest pain Status: Acute Current Visit: Yes (2) Atrial fibrillation with RVR Status: Acute Current Visit: Yes (3) Chronic atrial fibrillation Status: Acute Current Visit: Yes (4) Hypertension Status: Acute Current Visit: Yes (5) Hypokalemia Status: Acute Current Visit: Yes (6) BMI less than 19,adult Status: Acute Current Visit: Yes Assessment and Plan for All Diagnoses:: Echocardiogram shows preserved ejection fraction with no wall motion abnormalities. Patient does have moderate mitral regurgitation with severe tricuspid regurgitation with RVSP of 47 mmHg. Enlarged right heart is noted. Plan continue metoprolol 100 mg twice daily, increase diltiazem to 80 mg 3 times daily and will add digoxin 0.25 mg IV once with daily dosing of 0.125 mg to start today also. In addition to this the patient will start receiving pain medication for her rheumatoid arthritis which should help with her adrenaline driven tachycardia. If heart rate improves later today, patient could be discharged home. Would recommend an outpatient monitor for several days to monitor for tachybradycardia syndrome.
--- NOTE | 2018-06-30 08:00 | Discharge Summary ---
General - General Admission date:: 06/29/18 Discharge date: 06/30/18 HPI HPI: 73-year-old white female with history of atrial fibrillation and cardiac disease, who has been staying in the [facility] for the past several months taking care of some relatives, who normally follows with cardiology and a regular physician in [place], [place]. She came to the emergency department last night because of chest pain and pressure, related to increased heart rate. In the emergency department she was found to have subtherapeutic INR, found to have elevated heart rate but negative troponins. Given her overall medical fragility and need for better medication control of heart rate and INR issues she was admitted overnight to the hospital. This morning she continues to feel tired and sluggish. She specifically denies chest pain this morning Hospital Course Hospital Course: Patient was admitted to hospital. Placed on IV antibiotics because of her urinary tract infection. Warfarin therapy was continued. She was found to have subtherapeutic INR levels. Pharmacy service was consulted. She will be enrolled in our Coumadin clinic through our pharmacy service. She was treated with diltiazem for her rapid heart rate which after dose escalation improved her resting heart rate into the mid 80s. She did have some episodes of diarrhea present on admission, treated with Imodium with good results. This morning patient feels good, eating well, up and around, no complaints of chest pain or shortness of air. She will be discharged home with long-acting Cardizem, antibiotics for UTI and changed metoprolol to tartrate instead of succinate. Objective Vital signs: Temp Pulse Resp BP Pulse Ox 98.3 F 105 H 16 151/90 H 96 06/30/18 04:00 06/30/18 04:00 06/30/18 04:00 06/30/18 04:00 06/30/18 04:00 Narrative: Pleasant and talkative, appears thin. Heart rate in the 80s and irregular. Lungs are clear. No edema noted. Abdomen soft. Neurologically intact, pleasant and talkative. DS: Diagnosis - Discharge Diagnosis (1) Chest pain Status: Resolved (2) Atrial fibrillation with RVR Status: Resolved (3) Chronic atrial fibrillation Status: Chronic (4) Hypertension Status: Chronic (5) Hypokalemia Status: Resolved (6) BMI less than 19,adult Status: Chronic (7) Macrocytosis without anemia Status: Acute (8) UTI (urinary tract infection) Status: Acute Discharge Plan - Patient Discharge Instructions ACTIVITY: Continue current activity DIET: continue same diet Patient Instructions: Angina, High Blood Pressure, DI for Atrial Fibrillation, DI for Hypokalemia - Follow up Plan Follow up with: Venkat Doherty MD [Staff Physician] - 07/06/18 Disposition: Home, Self-Fdc Medications: Home Medications Medication Instructions Recorded Confirmed Type Butalbit/Acetamin/Caff/Codeine 1 each PO DIRECTED PRN 04/24/18 06/28/18 History [Fioricet w/Codeine Capsule] Metoprolol Succinate [Metoprolol 200 mg PO DAILY 04/24/18 06/27/18 History Succinate 200mg Tablet] Warfarin Sodium 5 mg PO DIRECTED 04/24/18 06/28/18 History Ergocalciferol (Vitamin D2) 1 cap PO WEEKLY 06/27/18 06/27/18 History [Vitamin D2] Ondansetron HCl [Ondansetron 4mg 4 mg PO Q8HP PRN 06/27/18 06/27/18 History Tablet] Cefdinir [Omnicef 300mg Capsule] 300 mg PO BID #14 cap 06/30/18 Rx Metoprolol Tartrate 100 mg PO BID #60 tab 06/30/18 Rx dilTIAZem HCl [Diltiazem 240mg 240 mg PO DAILY #30 cap 06/30/18 Rx 24Hr ER Cap] Prescriptions/Medication Reconciliation: New dilTIAZem HCl [Diltiazem 240mg 24Hr ER Cap] 240 mg PO DAILY #30 cap Metoprolol Tartrate 100 mg PO BID #60 tab Cefdinir [Omnicef 300mg Capsule] 300 mg PO BID #14 cap Continued Butalbit/Acetamin/Caff/Codeine [Fioricet w/Codeine Capsule] 1 each PO DIRECTED PRN PRN Reason: Headache Ergocalciferol (Vitamin D2) [Vitamin D2] 1 cap PO WEEKLY Warfarin Sodium 5 mg PO DIRECTED Ondansetron HCl [Ondansetron 4mg Tablet] 4 mg PO Q8HP PRN PRN Reason: Nausea Discontinued Metoprolol Succinate [Metoprolol Succinate 200mg Tablet] 200 mg PO DAILY
== END 2018-06-30 09:07 | disposition home or self-care (01) | DRG 309 ==
LOC: ER 10:16 → 2ND 10:16
PROVIDERS: ADMIT Internal Medicine Adolescent Medicine; ATTEND Internal Medicine Adolescent Medicine
CPT/HCPCS: 36415; 74021; 74022; 80048; 80076; 81001; 83735; 84484; 85025; 85610; 85730; 87086; 87088; 87186; 87507; 93005; 93306; 96365; 96366; 96367; 96375; 96376; 99285; G0378; J2405

== ENCOUNTER 2018-07-06 07:50 | Outpatient (CLI) | payer MEDICARE, SELFPAY ==
[2018-07-06 14:45] LABS: PHA INR Fingerstick 3.8 (0.9-1.1)
== END 2018-07-06 14:46 | disposition home or self-care (01) ==
LOC: ACC 07:52
PROVIDERS: PCP Internal Medicine Adolescent Medicine; Visit Provider Internal Medicine Adolescent Medicine
DX: Z51.81 Encounter for therapeutic drug level monitoring (principal); Z79.01 Long term (current) use of anticoagulants; I48.2 Chronic atrial fibrillation
CPT/HCPCS: 85610; 99211; G0463

== ENCOUNTER 2018-07-12 08:51 | Outpatient (CLI) | payer MEDICARE, SELFPAY ==
[2018-07-12 11:56] LABS: PHA INR Fingerstick 2.8 (0.9-1.1)
== END 2018-07-12 12:05 | disposition home or self-care (01) ==
LOC: ACC 08:51
PROVIDERS: Internal Medicine Adolescent Medicine; PCP Internal Medicine Adolescent Medicine; Visit Provider Internal Medicine Adolescent Medicine
DX: Z51.81 Encounter for therapeutic drug level monitoring (principal); Z79.01 Long term (current) use of anticoagulants; I48.2 Chronic atrial fibrillation
CPT/HCPCS: 85610; 99211; G0463

== ENCOUNTER 2018-07-21 09:03 | Outpatient (CLI) | payer MEDICARE, SELFPAY ==
[2018-07-21 09:46] LABS: PHA INR Fingerstick 2.2 (0.9-1.1)
== END 2018-07-21 09:49 | disposition home or self-care (01) ==
LOC: ACC 09:04
PROVIDERS: PCP Internal Medicine Adolescent Medicine; Visit Provider Internal Medicine Adolescent Medicine
DX: Z51.81 Encounter for therapeutic drug level monitoring (principal); Z79.01 Long term (current) use of anticoagulants; I48.2 Chronic atrial fibrillation
CPT/HCPCS: 85610; 99211; G0463

== ENCOUNTER 2018-07-27 11:20 | Outpatient (CLI) | payer MEDICARE, SELFPAY ==
[2018-07-27 12:58] LABS: Prothrombin Time 42.2 seconds (9.4-11.8)
[2018-07-27 13:08] LABS: INR 4.35 (0.9-1.1)
[2018-07-27 13:31] LABS: PHA INR Fingerstick 4.1 (0.9-1.1)
== END 2018-07-27 13:36 | disposition home or self-care (01) ==
LOC: RAD 11:21
PROVIDERS: Internal Medicine Adolescent Medicine; PCP Nurse Practitioner; Visit Provider Nurse Practitioner
DX: Z51.81 Encounter for therapeutic drug level monitoring (principal); Z79.01 Long term (current) use of anticoagulants
CPT/HCPCS: 36415; 85610; 99211; G0463

== ENCOUNTER 2018-07-30 09:53 | Outpatient (CLI) | payer MEDICARE, SELFPAY ==
[2018-07-30 14:49] LABS: PHA INR Fingerstick 1.8 (0.9-1.1)
== END 2018-07-30 15:33 | disposition home or self-care (01) ==
LOC: ACC 09:54
PROVIDERS: PCP Internal Medicine Adolescent Medicine; Visit Provider Nurse Practitioner
DX: Z51.81 Encounter for therapeutic drug level monitoring (principal); Z79.01 Long term (current) use of anticoagulants
CPT/HCPCS: 85610; 99211; G0463

== ENCOUNTER → 2018-08-05 13:07 | Outpatient (CLI) | payer MEDICARE, SELFPAY ==
[2018-08-05 15:26] LABS: Erythrocyte Sedimentation Rate 90 mm/hr (0-30)
[2018-08-05 16:20] LABS: Alanine Aminotransferase 25 U/L (12-78); Albumin Level 3.3 gm/dL (3.4-5.0); Albumin/Globulin Ratio 0.8 (1.1-1.8); Alkaline Phosphatase 106 U/L (46-116); Anion Gap 14.9 mEq/L (5-15); Aspartate Amino Transferase 27 U/L (15-37); Bilirubin,Total 0.2 mg/dL (0.2-1.0); Blood Urea Nitrogen 8 mg/dL (7-18); C-Reactive Protein 0.3 mg/L (0.0-0.9); Calcium 8.6 mg/dL (8.5-10.1); Carbon Dioxide 28 mmol/L (21.0-32.0); Chloride 103 mmol/L (98-107); Creatinine,Serum 0.85 mg/dL (0.55-1.02); Estimated Glomerular Filt Rate 65 ml/min (>60); GFR (African American) 79 ML/MIN (>60); Globulin 3.9 gm/dl (1.3-3.2); Glucose 90 mg/dL (74-106); Potassium 3.9 mmoL/L (3.5-5.1); Sodium 142 mmol/L (136-145); Total Protein,Serum 7.2 gm/dL (6.4-8.2)
[2018-08-08 23:04] LABS: Anti-Cyclic Citrullinated Pept 7 units (0-19)
[2018-08-09 14:12] LABS: Anti-Centromere B Antibodies <0.2 AI (0.0-0.9); Anti-Jo-1 <0.2 AI (0.0-0.9); Anti-Smith Antibody <0.2 AI (0.0-0.9); Antichromatin Antibodies 0.3 AI (0.0-0.9); Antiscleroderma-70 Antibodies <0.2 AI (0.0-0.9); RNP Antibodies 0.2 AI (0.0-0.9); Sjogren's Anti-SS-A <0.2 AI (0.0-0.9); Sjogren's Anti-SS-B <0.2 AI (0.0-0.9)
[2018-08-10 19:52] LABS: Anti-DNA (DS) Ab Qn 1 IU/mL (0-9)
== END ==
PROVIDERS: Visit Provider Internal Medicine Adolescent Medicine
DX: M06.9 Rheumatoid arthritis, unspecified (principal)
CPT/HCPCS: 36415; 80053; 85651; 86140; 86200; 86225; 86235